=== PATIENT | male | born 1965 | race Caucasian/White ===

== ENCOUNTER 2018-09-22 23:04 | Emergency (ER) | payer OTHER ==
[2018-09-22] MEDS ORDERED: DIPHENHYDRAMINE 50 MG INJ (23:20)
[2018-09-22] MEDS ORDERED: EPINEPHrine 1 MG INJ (23:20)
[2018-09-22] MEDS: EPINEPHrine 1 MG INJ IM (23:22)
[2018-09-22] MEDS: DIPHENHYDRAMINE 50 MG INJ IV (23:22)
[2018-09-22] MEDS: ALBUTEROL 0.083% (NEB) 2.5 MG/3 ML AMP INH (23:29)
[2018-09-22] MEDS: IPRATROPIUM (NEB) 0.5 MG/2.5 ML AMP INH (23:29)
[2018-09-22] MEDS: METHYLPREDNISOLONE 125 MG INJ IV (23:30)
[2018-09-22] MEDS: FAMOTIDINE 20 MG INJ IV (23:30)
== END 2018-09-23 02:31 | disposition home or self-care (01) ==
LOC: E/R 23:04
DX: Z91.011 Allergy to milk products (principal); R06.02 Shortness of breath
CPT/HCPCS: 71045; 94664; 96372; 96374; 96375; 99284-25